=== PATIENT | male | born 1995 | race Caucasian/White ===

== ENCOUNTER 2017-07-27 16:43 | Emergency (ER) | payer SELFPAY ==
[~2017-07-27] VITALS: Ht 180.3 cm; Wt 80.6 kg
[2017-07-27] MEDS ORDERED: MOTRIN600 MG PO (18:17)
[2017-07-27 18:24] VITALS: BP 129/77
== END 2017-07-27 18:25 | disposition home or self-care (01) ==
LOC: EME 16:43
DX: M94.0 Chondrocostal junction syndrome [Tietze] (principal); R05 Cough
CPT/HCPCS: 71020; 93005; 99281; 99284